=== PATIENT | male | born 1965 | race Caucasian/White ===

== ENCOUNTER 2020-04-04 11:16 | Outpatient (CLI) | payer BC ==
[~2020-04-04 11:16] MED LIST: CETI-90 PO; GLUC-178 PO; MULT-1074 PO
[2020-04-04] MEDS ORDERED: FLO0.4C PO (11:59)
[2020-04-04 12:22] LABS: BASOPHILS # (AUTO) 0.1 X10'3 (0-0.2); BASOPHILS % (AUTO) 0.7 % (0-1); EOSINOPHILS # (AUTO) 0.1 X10'3 (0-0.9); EOSINOPHILS % (AUTO) 0.7 % (0-6); LYMPHOCYTES # (AUTO) 0.8 X10'3 (1.1-4.8); LYMPHOCYTES % (AUTO) 7.8 % (21-51); MEAN CORPUSCULAR HEMOGLOBIN 31.2 PG (27.0-31.0); MEAN CORPUSCULAR HGB CONC 33.9 g/dL (33.0-36.5); MEAN PLATELET VOLUME 8.5 FL (7.4-10.4); MONOCYTES % (AUTO) 10.5 % (2-12); NEUTROPHILS # (AUTO) 7.8 X10'3 (1.8-7.7); NEUTROPHILS % (AUTO) 80.3 % (42-75); PRE OP HEMATOCRIT 45.4 % (42.0-52.0); PRE OP HEMOGLOBIN 15.4 g/dL (14.0-17.9); PRE OP PLATELET COUNT 343 X10'3 (140-440); RED BLOOD COUNT 4.94 X10'6 (4.70-6.10); RED CELL DISTRIBUTION WIDTH 12.5 % (11.5-14.5)
[2020-04-04 12:34] LABS: ALBUMIN 3.8 G/DL (3.4-5.0); ALBUMIN/GLOBULIN RATIO 0.9 (1.1-1.5); ALKALINE PHOSPHATASE 133 IU/L (46-116); BLOOD UREA NITROGEN 10 MG/DL (7-18); BUN/CREATININE RATIO 13.2 (5.4-32.0); CALCIUM 9.9 MG/DL (8.5-10.1); CHLORIDE 105 MMOL/L (99-107); CREATININE 0.76 MG/DL (0.60-1.10); PRE OP ALT 37 U/L (30-65); PRE OP ANION GAP 8 (8-16); PRE OP AST 24 U/L (10-37); PRE OP BILIRUB, TOTAL 0.4 MG/DL (0.0-1.0); PRE OP POTASSIUM 3.9 MMOL/L (3.4-5.1); PRE OP SODIUM 142 MMOL/L (135-145); TOTAL CARBON DIOXIDE 29.2 MMOL/L (24-32); eGFR > 90 ML/MIN
[2020-04-04 12:36] LABS: PRE OP GLUCOSE 82 MG/DL (70-104)
== END 2020-04-04 23:59 | disposition home or self-care (01) ==
LOC: PRE-OP 11:16 → EDSTATUS 04-11 07:30
PROVIDERS: ATTEND Urology
DX: Z01.812 Encounter for preprocedural laboratory examination (principal); C61 Malignant neoplasm of prostate; J90 Pleural effusion, not elsewhere classified; Z20.828 Contact with and (suspected) exposure to other viral communicable diseases
CPT/HCPCS: 36415; 71046; 80053; 85025; 86885; 86900; 86901; 86920; 87635; 93005

== ENCOUNTER 2020-04-21 08:25 | Day surgery (SDC) | payer BC ==
[~2020-04-21] VITALS: Ht 170.2 cm; Wt 68.1 kg
[~2020-04-21 08:25] MED LIST changes: -CETI-90 PO; +FLO0.4C PO; -GLUC-178 PO
[2020-04-21 08:55] VITALS: BP 118/76
[2020-04-21 08:56] VITALS: BP 126/80
[2020-04-21] MEDS ORDERED: albumin 25% 100mL bottle x 1 IV PRN (09:05)
[2020-04-21] MEDS ORDERED: MULT-1172 PEG (09:12)
[2020-04-21] MEDS ORDERED: FLO0.4C PO (09:12)
[2020-04-21 09:48] VITALS: BP 118/76
[2020-04-21 10:15] VITALS: BP 125/84
[2020-04-21 10:30] VITALS: BP 123/78
[2020-04-21 10:45] VITALS: BP 118/79
[2020-04-21 11:00] LABS: LDH,BODY FLUID 291 U/L
[2020-04-21 11:01] LABS: GLUCOSE,BODY FLUID 103 MG/DL; TOTAL PROTEIN,BODY FLUID 5.4 G/DL
[2020-04-21 12:19] LABS: BF RBC COUNT 1020 /CU MM; BF WBC COUNT 2775 /CU MM (0-1000); BFAPPEAR HAZY; BFCOLOR YELLOW; BFVOLUME 55 ML
[2020-04-21 12:21] LABS: LYMPHOCYTES,BODY FLUID 81 %; MONOCYTES,BODY FLUID 5 %; NEUTROPHILS,BODY FLUID 14 %
[2020-04-21 12:22] LABS: BF MESOTHELIAL CELLS FEW
== END 2020-04-21 11:03 | disposition home or self-care (01) ==
LOC: SSTAY O 08:25
PROVIDERS: ATTEND Radiology Diagnostic Radiology
DX: J90 Pleural effusion, not elsewhere classified (principal); Z85.46 Personal history of malignant neoplasm of prostate; Z98.890 Other specified postprocedural states; Z88.8 Allergy status to other drugs, medicaments and biological substances; Z72.89 Other problems related to lifestyle; Z79.899 Other long term (current) drug therapy
CPT/HCPCS: 32555; 71045; 82945; 83615; 84157; 87070; 87075; 89051

== ENCOUNTER 2020-05-16 08:34 | Day surgery (SDC) | payer BC ==
[~2020-05-16] VITALS: Ht 170.2 cm; Wt 68.6 kg
[~2020-05-16 08:34] MED LIST changes: -MULT-1074 PO; +MULT-1172 PO
[2020-05-16 08:45] VITALS: BP 128/94
[2020-05-16] MEDS ORDERED: albumin 25% 100mL bottle x 1 IV PRN (08:55)
[2020-05-16 10:30] VITALS: BP 110/76
[2020-05-16 10:45] VITALS: BP 122/82
== END 2020-05-16 10:45 | disposition home or self-care (01) ==
LOC: SSTAY O 08:34
PROVIDERS: ATTEND Radiology Vascular & Interventional Radiology
DX: J90 Pleural effusion, not elsewhere classified (principal); Z88.8 Allergy status to other drugs, medicaments and biological substances; F12.11 Cannabis abuse, in remission; Z85.46 Personal history of malignant neoplasm of prostate; Z98.890 Other specified postprocedural states; Z72.89 Other problems related to lifestyle; Z79.899 Other long term (current) drug therapy
CPT/HCPCS: 32555; 71045

== ENCOUNTER 2020-06-06 08:26 | Day surgery (SDC) | payer BC ==
[~2020-06-06] VITALS: Ht 170.2 cm; Wt 67.7 kg
[2020-06-06 09:00] VITALS: BP 115/81
--- NOTE | 2020-06-06 09:00 | NUR ---
Patient arrived to unit.
[2020-06-06 10:22] VITALS: BP 112/80
[2020-06-06 10:32] VITALS: BP 136/83
[2020-06-06 10:45] VITALS: BP 117/61
[2020-06-06 11:00] VITALS: BP 103/65
[2020-06-06 11:15] VITALS: BP 116/75
--- NOTE | 2020-06-06 11:40 | NUR ---
Spoke with CANDY Ha and CXR looked good for discharge. Patient discharged at this time. All belongings with pt.
== END 2020-06-06 11:40 | disposition home or self-care (01) ==
LOC: SSTAY O 08:26
PROVIDERS: ATTEND Radiology Vascular & Interventional Radiology
DX: J91.8 Pleural effusion in other conditions classified elsewhere (principal); J90 Pleural effusion, not elsewhere classified; Z20.822 Contact with and (suspected) exposure to COVID-19; Z85.46 Personal history of malignant neoplasm of prostate; Z87.891 Personal history of nicotine dependence; Z88.8 Allergy status to other drugs, medicaments and biological substances; Z79.899 Other long term (current) drug therapy; Z98.890 Other specified postprocedural states
CPT/HCPCS: 32555; 36415; 71045; 87635

== ENCOUNTER 2020-06-23 09:59 | Inpatient (IN) | payer BC ==
[~2020-06-23] VITALS: Ht 170.2 cm; Wt 70.5 kg
[2020-06-23 11:55] VITALS: BP 125/74
[2020-06-23 12:36] LABS: BASOPHILS # (AUTO) 0.1 X10'3 (0-0.2); BASOPHILS % (AUTO) 0.7 % (0-1); EOSINOPHILS # (AUTO) 0.1 X10'3 (0-0.9); EOSINOPHILS % (AUTO) 1.5 % (0-6); HEMATOCRIT 42.2 % (42.0-52.0); HEMOGLOBIN 14.2 g/dl (14.0-17.9); LYMPHOCYTES # (AUTO) 0.5 X10'3 (1.1-4.8); LYMPHOCYTES % (AUTO) 6.1 % (21-51); MEAN CORPUSCULAR HGB CONC 33.6 g/dL (33.0-36.5); MEAN CORPUSCULAR VOLUME 92.2 FL (78-98); MEAN PLATELET VOLUME 10.7 FL (7.4-10.4); MONOCYTES # (AUTO) 1.1 X10'3 (0-0.9); MONOCYTES % (AUTO) 12.8 % (2-12); NEUTROPHILS # (AUTO) 6.9 X10'3 (1.8-7.7); NEUTROPHILS % (AUTO) 78.9 % (42-75); PLATELET COUNT 267 X10'3 (140-440); RED BLOOD COUNT 4.57 X10'6 (4.70-6.10); RED CELL DISTRIBUTION WIDTH 13.5 % (11.5-14.5); WHITE BLOOD COUNT 8.7 X10'3 (4.5-11.0)
[2020-06-23 12:40] LABS: ALBUMIN 3.2 G/DL (3.4-5.0); ANION GAP 10 (8-16); BLOOD UREA NITROGEN 17 MG/DL (7-18); CALCIUM 9.9 MG/DL (8.5-10.1); CHLORIDE 104 MMOL/L (99-107); CREATININE 0.68 MG/DL (0.60-1.10); PARTIAL THROMBOPLASTIN TIME 27 SECONDS (22-32); POTASSIUM 3.9 MMOL/L (3.5-5.1); SODIUM 139 MMOL/L (135-145); TOTAL CARBON DIOXIDE 24.8 MMOL/L (24-32); eGFR > 90 ML/MIN
[2020-06-23 12:41] LABS: GLUCOSE 81 MG/DL (70-104)
[2020-06-23 13:12] LABS: LARGE PLATELETS FEW; PLATELET ESTIMATE NORMAL
--- NOTE | 2020-06-23 14:00 | NUR ---
I had called [facility]/IR department, spoke to Valentina about the order for chest tube, she said they are doing another patient and that they would probably do this patient around 3 pm.
[2020-06-23] MEDS: dextrose 5%-lactated ringers 1,000 ML IV SCH ×2 (14:16→23:39)
[2020-06-23 15:21] VITALS: BP 124/76
[2020-06-23 15:33] VITALS: BP 113/66
--- NOTE | 2020-06-23 15:57 | NUR ---
[facility]/IR nurse notified about small bubble on the chamber. I also asked her if we need to have order for chest xray, the nurse said we did not have to.
--- NOTE | 2020-06-23 17:00 | NUR ---
Small leak/bubbling on the chest tube chamber not noted anymore. Patient was instructed to call the nurse if he needs to go to the restroom and to call the nurse if suddenly he is short of breath. Patient verbalized understanding of instructions made.
--- NOTE | 2020-06-23 18:22 | NUR ---
I have received report from Sarika PIERRE and had the opportunity to ask questions and assume patient care.
--- NOTE | 2020-06-23 18:34 | NUR ---
Problems reprioritized. Patient report given, questions answered & plan of care reviewed with Barbara PIERRE.
[2020-06-23 20:00] VITALS: BP 99/58
[2020-06-23] MEDS: diatr meglu/diatrizoate 30ml oral sol.-(3 dose) bottle PO SCH (21:49)
[2020-06-23] MEDS ORDERED: morphine 4 MG/ML inj SYRINge IV PRN (22:05)
[2020-06-24] VITALS: BP 106/66
--- NOTE | 2020-06-24 06:08 | NUR ---
Problems reprioritized. Patient report given, questions answered & plan of care reviewed with Sarika PIERRE.
--- NOTE | 2020-06-24 06:08 | NUR ---
Patient in room [facility]. I have received report from Barbara PIERRE and had the opportunity to ask questions and assume patient care.
[2020-06-24] MEDS ORDERED: iohexol 300mg/ml 100ml inj. ONE (06:47)
[2020-06-24 07:00] VITALS: BP 99/62
[2020-06-24] MEDS: diatr meglu/diatrizoate 30ml oral sol.-(3 dose) bottle PO SCH ×2 (07:20→10:28)
--- NOTE | 2020-06-24 07:46 | NUR ---
Breakfast tray (caution tray) served to patient. Patient in good spirit at this time. He said that he has ongoing depression since 2006 and the last time he consulted a psychiatrist over the phone was March 2020. Patient denies any suicidal thoughts at this time, safety plan discussed with patient including referral to Offset Lithographic Press Operator. Addendum: 06/24/20 at 0749 by Essence Leblanc RN Sitter at bedside. Patient was instructed to tell the sitter if he need anything. Addendum: 06/24/20 at 1002 by Courtney Jarvis RN Above note was mine, charted on the wrong patient chart
[2020-06-24] MEDS: dextrose 5%-lactated ringers 1,000 ML IV SCH ×3 (09:50→22:55)
--- NOTE | 2020-06-24 10:40 | NUR ---
Patient went to CT scan via wheelchair. Chest tube dressing intact, not clamped. Giovana nurse Dora at the CT to take over while patient having the procedure
--- NOTE | 2020-06-24 10:50 | NUR ---
CANDY Fountain from came by, I told him patient in the CT scan department at the moment. I notified him about the chest tube output yesterday was a lot and that night nurse had to change the canister this am. I also let him know that there was a small leak yesterday after the chest tube was placed but had stopped.
[2020-06-24 11:00] VITALS: BP 97/61
--- NOTE | 2020-06-24 13:15 | NUR ---
Dr. Oquendo seen patient, discussed the CT scan result to patient with the sister present at bedside. Per Dr. Oquendo patient not going for surgery today but probably tomorrow. I made Dr. Oquendo aware that patient has been putting a lot of Chest tube drainage since yesterday so the night nurse has to change the canister.
--- NOTE | 2020-06-24 13:44 | NUR ---
I asked Claudy, [employer] to obtain records of pleural study done for this patient here in the hospital
--- NOTE | 2020-06-24 18:29 | NUR ---
Problems reprioritized. Patient report given, questions answered & plan of care reviewed with Barbara PIERRE.
--- NOTE | 2020-06-24 18:52 | NUR ---
I have received report from Ale PIERRE and had the opportunity to ask questions and assume patient care.
[2020-06-24 19:00] VITALS: BP 111/73
[2020-06-24 21:23] VITALS: BP 111/73
[2020-06-25] VITALS: BP 103/67
[2020-06-25 06:23] LABS: BASOPHILS # (AUTO) 0.1 X10'3 (0-0.2); BASOPHILS % (AUTO) 0.7 % (0-1); EOSINOPHILS # (AUTO) 0.4 X10'3 (0-0.9); EOSINOPHILS % (AUTO) 4.8 % (0-6); HEMATOCRIT 41.5 % (42.0-52.0); LYMPHOCYTES # (AUTO) 0.4 X10'3 (1.1-4.8); LYMPHOCYTES % (AUTO) 4.9 % (21-51); MEAN CORPUSCULAR HEMOGLOBIN 31.4 PG (27.0-31.0); MEAN CORPUSCULAR HGB CONC 33.8 g/dL (33.0-36.5); MEAN CORPUSCULAR VOLUME 92.7 FL (78-98); MEAN PLATELET VOLUME 11.2 FL (7.4-10.4); MONOCYTES # (AUTO) 1.1 X10'3 (0-0.9); MONOCYTES % (AUTO) 12.2 % (2-12); NEUTROPHILS % (AUTO) 77.4 % (42-75); PLATELET COUNT 249 X10'3 (140-440); RED BLOOD COUNT 4.48 X10'6 (4.70-6.10); RED CELL DISTRIBUTION WIDTH 13.6 % (11.5-14.5)
[2020-06-25 06:31] LABS: ALBUMIN 2.6 G/DL (3.4-5.0); ANION GAP 8 (8-16); BLOOD UREA NITROGEN 9 MG/DL (7-18); BUN/CREATININE RATIO 14.8 (5.4-32.0); CALCIUM 8.9 MG/DL (8.5-10.1); CHLORIDE 106 MMOL/L (99-107); CREATININE 0.61 MG/DL (0.60-1.10); POTASSIUM 4.1 MMOL/L (3.5-5.1); SODIUM 141 MMOL/L (135-145); TOTAL CARBON DIOXIDE 27.5 MMOL/L (24-32); eGFR > 90 ML/MIN
[2020-06-25 06:32] LABS: GLUCOSE 104 MG/DL (70-104)
[2020-06-25 06:35] LABS: PARTIAL THROMBOPLASTIN TIME 29 SECONDS (22-32)
--- NOTE | 2020-06-25 06:41 | NUR ---
Problems reprioritized. Patient report given, questions answered & plan of care reviewed with Anabell PIERRE.
--- NOTE | 2020-06-25 06:45 | NUR ---
Patient in room [facility]. I have received report from Barbara PIERRE and had the opportunity to ask questions and assume patient care.
[2020-06-25 08:00] VITALS: BP 99/58
[2020-06-25] MEDS: multivitamins, therapeutics tablet PO SCH (09:04)
[2020-06-25] MEDS: tamsulosin 0.4mg capsule PO SCH (09:04)
[2020-06-25] MEDS: dextrose 5%-lactated ringers 1,000 ML IV SCH ×2 (09:06→18:26)
[2020-06-25 10:30] VITALS: BP 96/56
--- NOTE | 2020-06-25 11:30 | NUR ---
No surgery today per Nato RN OR Charge. Phone call from Clarity of Dr Oquendo's office, pt may eat regular diet today, then NPO at midnight. Pt advised, as well as Александр MURILLO at pt's bedside.
[2020-06-25 12:00] VITALS: BP 96/56
--- NOTE | 2020-06-25 12:00 | NUR ---
Student entered "1030" as time for 1200 vitals.
--- NOTE | 2020-06-25 15:30 | NUR ---
Had received phone call message from Dr Stone Hung's office, stating she was leaving the office by 4pm. Returned call, unable to reach and left phone message to phone me back.
--- NOTE | 2020-06-25 18:15 | NUR ---
Problems reprioritized. Patient report given, questions answered & plan of care reviewed with Cynthia PIERRE.
--- NOTE | 2020-06-25 18:30 | NUR ---
Patient in room [facility] 354. I have received report from DANN PIERRE and had the opportunity to ask questions and assume patient care.
[2020-06-25 20:00] VITALS: BP 108/62
[2020-06-26] VITALS (17 sets, daily range): BP systolic 103–130; BP diastolic 59–82
[2020-06-26] MEDS: dextrose 5%-lactated ringers 1,000 ML IV SCH ×2 (04:45→13:46)
--- NOTE | 2020-06-26 06:16 | NUR ---
Problems reprioritized. Patient report given, questions answered & plan of care reviewed with ANNA PIERRE.
--- NOTE | 2020-06-26 07:30 | NUR ---
Called Dr Oquendo he is ok with patient to have breakfast and be NPO after breakfast .
[2020-06-26] MEDS: tamsulosin 0.4mg capsule PO SCH (07:47)
[2020-06-26] MEDS: multivitamins, therapeutics tablet PO SCH (07:47)
--- NOTE | 2020-06-26 08:58 | NUR ---
Spoke to Jose with [facility] regarding patient has no orders for chest tube management. This chest tube was placed by IR. Per Jose she will contact Александр the PA and get orders or Александр will come see patient.
[2020-06-26] MEDS ORDERED: BUPIVAcaine/PF 2.5 mg/ml (0.25%) 30ml vial ONE (15:26)
[2020-06-26] MEDS ORDERED: sterile Talc 3 GM powder vial (for IntraPleural Use ONLY) ONE (15:48)
--- NOTE | 2020-06-26 17:33 | NUR ---
Problems reprioritized. Patient report given, questions answered & plan of care reviewed with Dipika PIERRE in Recovery.
--- NOTE | 2020-06-26 17:47 | NUR ---
Blood type and screen complete patient taken via gurney to surgery at bedside. PCT Kedar packing patients belongings and leaving in room until we find out what room patient will go to after surgery. Patients took patients cell phone home.
[2020-06-26] MEDS ORDERED: scopolamine 1.5mg patch.TD72 TD ONE (18:28)
--- NOTE | 2020-06-26 18:30 | NUR ---
Patient in room [facility] 354. I have received report from Tuyet PIERRE and had the opportunity to ask questions and assume patient care.
[2020-06-26] MEDS ORDERED: fentaNYL /PF 50mcg/ml 5ml ampule ONE (18:32)
[2020-06-26] MEDS ORDERED: midazolam 1 mg/ML 2ml injection ONE (18:32)
--- NOTE | 2020-06-26 18:35 | NUR ---
Problems reprioritized. Patient report given, questions answered & plan of care reviewed with Heidi PIERRE (danisha).
[2020-06-26] MEDS ORDERED: ondansetron/PF 4mg/2ml inj IV PRN ×2 (20:20→20:55)
[2020-06-26] MEDS ORDERED: morphine 2 MG/ML inj. syringe IV PRN (20:20)
[2020-06-26] MEDS ORDERED: ringers solution, lacted 1,000 ML IV SCH (20:20)
[2020-06-26] MEDS ORDERED: meperidine/PF 25mg/ml syringe IV PRN ×2 (20:20)
[2020-06-26] MEDS ORDERED: morphine 4 MG/ML inj SYRINge IV PRN ×3 (20:20→20:55)
[2020-06-26] MEDS ORDERED: proCHLORperazine 10 MG/2 ml inj IV PRN (20:20)
[2020-06-26] MEDS ORDERED: metoclopramide 5 mg/ml inj IV PRN (20:55)
[2020-06-26] MEDS ORDERED: potassium Cl 20mEq in D5-NS 1,000 ML IV SCH (20:55)
[2020-06-26] MEDS ORDERED: albuterol 2.5 MG/3 ML nebule NEB PRN (20:55)
[2020-06-26] MEDS ORDERED: naloxone 0.4 mg/ml inj IV PRN ×2 (20:55→21:30)
[2020-06-26] MEDS ORDERED: propofol inj 20 ML IV ONE (20:55)
[2020-06-26] MEDS ORDERED: ondansetron/PF 4mg/2ml inj ONE (20:55)
[2020-06-26] MEDS ORDERED: CADD PCA waste documentation MC PRN ×2 (20:55→21:30)
[2020-06-26] MEDS ORDERED: acetaminophen 1,000mg/100ml IV 100 ML IV ONE (20:55)
[2020-06-26] MEDS ORDERED: rocuronium 10mg/ml inj IV ONE (20:55)
[2020-06-26] MEDS ORDERED: LIDOcaine 2% (20mg/ml) 5ml vial ONE (20:55)
[2020-06-26] MEDS ORDERED: meperidine/PF 25mg/ml syringe ONE (20:55)
[2020-06-26] MEDS ORDERED: dexamethasone sod phosphate 4mg/ml inj. ONE (20:55)
--- NOTE | 2020-06-26 21:00 | NUR ---
Received from OR via BED , accompanied by Anesthesiologist DR KENNEDY and report given by Anesthesiolgist. PATIENT WAKING UP,C/O PAIN SEE EMAR , V/S WNL, CSM INTACT, F/C DRAINING CLEAR YELLOW URINE, SCD ON, 20G PIV TO RUE AND 20G LUE AND ART LINE TO LUE, LEFT SIDED CHEST TUBE 2 DRAINS Y PORTED TO SINGLE LINE TO CHEST TUBE AT 20CM SUCTION WITH MINIMAL LEAK DRESSING CDI, 90CCIN DRAIN RED BLOOD, DR KUMARI AWARE.
[2020-06-26] MEDS: meperidine/PF 25mg/ml syringe IV PRN ×2 (21:07→21:20)
[2020-06-26 21:09] LABS: ABG BASE EXCESS -0.6 mmol/L (-2.0-2.0); ABG HCO3 27.2 mmol/L (22.0-26.0); ABG PO2 (T) 93.1 mmHg (75.0-100.0); FCOHb 0.1 % (0.0-3.9); FLOW 10 L/min; FMetHb 0.5 % (0.0-1.5); FO2Hb 96.4 % (94-97)
[2020-06-26] MEDS ORDERED: ketorolac trometh. 30mg/ml inj. IV ONE (21:20)
--- NOTE | 2020-06-26 21:50 | NUR ---
PATIENT A&OX4, STATES PAIN BETTER CONTROLLED NOW SEE EMAR. CHEMICAL EQUIPMENT SALES ENGINEER ORDERED PRN IF NEEDED BUT SO FAR PATIENT PAIN SEEMS TO BE TOLERATING GOOD PAIN CONTROL AT THIS TIME AND CHEMICAL EQUIPMENT SALES ENGINEER WILL ONLY BE STARTED IF NEEDED PER DR KUMARI. , V/S WNL, CSM INTACT, F/C DRAINING CLEAR YELLOW URINE, SCD ON, 20G PIV TO RUE AND 20G LUE AND ART LINE TO LUE, LEFT SIDED CHEST TUBE 2 DRAINS Y PORTED TO SINGLE LINE TO CHEST TUBE AT 20CM SUCTION WITH MINIMAL LEAK DRESSING CDI, 120CC IN DRAIN OF RED BLOOD. CHEST XRAY TAKEN AND ABG DRAWN AND DR KUMARI HAS REVIEWED/ PATIENT TAKEN TO 316 WITH ALL BELONGINGS AND HOOKED UP TO MONITORS IN ROOM AND REPORT GIVEN TO RN WHO HAS TAKEN OVER PATIENT CARE.
--- NOTE | 2020-06-26 21:55 | NUR ---
RECEIVED PATIENT FROM RECOVERY. RN BROUGHT PATIENT TO ROOM 316. PATIENT STABLE VSS. PATIENT HAS LR RUNNING. NO OTHER FLUIDS TO GIVE PER REPORT. OUTPUT ON CHEST TUBE WAS AT 150 UPON ARRIVAL TO UNIT.
[2020-06-26 22:26] LABS: ABG BASE EXCESS -1.9 mmol/L (-2.0-2.0); ABG HCO3 23.4 mmol/L (22.0-26.0); ABG OXYGEN SATURATION 96.7 % (94-97); ABG PCO2 (T) 40.7 mmHg (35.0-48.0); ABG PO2 (T) 86.4 mmHg (75.0-100.0); FCOHb 0.3 % (0.0-3.9); FLOW 2 L/min; FMetHb 0.5 % (0.0-1.5); FO2Hb 95.9 % (94-97); PATIENT TEMPERATURE 36.4; TOTAL HEMOGLOBIN 14.6 G/dl (14.0-18.0)
[2020-06-27] VITALS (12 sets, daily range): BP systolic 91–124; BP diastolic 56–82
[2020-06-27] MEDS ORDERED: ceFAZolin inj. 1,000 MG in dextrose 5%-water 50ml 50 ML IV SCH ×2
--- NOTE | 2020-06-27 00:38 | NUR ---
PAITIENT C/O INCREASING PAIN 02/08. RN WILL APPLY SHEET MANAGER PUMP.
[2020-06-27] MEDS: HYDROmorphone/NS 1 mg/ml CADD 50 ML IV SCH ×4 (01:00→05:00)
[2020-06-27] MEDS: ceFAZolin/D5W- 1GM premix 50 ML IV SCH ×2 (01:21→08:17)
--- NOTE | 2020-06-27 05:39 | NUR ---
PATIENT BP WAS 87/50, PATIENT WAS COMPLAINING OF DIZZINESS, CAAD PUMP WAS STOPPED. RN ASSESSED PATIENT, AND WILL CONTINUE TO REASSESS. PATIENT ATE YOGURT AND WAS OFFERED WATER
--- NOTE | 2020-06-27 06:00 | NUR ---
PATIENT BLOOD PRESSURE INCREASED TO 95/60. PATIENT STATED HE WAS NO LONGER DIZZY AND HE FELT BETTER
--- NOTE | 2020-06-27 06:38 | NUR ---
Problems reprioritized. Patient report given, questions answered & plan of care reviewed with Ozzie cullen.
[2020-06-27] MEDS: gabapentin 300mg capsule PO SCH ×2 (08:22→20:24)
[2020-06-27] MEDS: multivitamins, therapeutics tablet PO SCH (08:22)
[2020-06-27] MEDS: tamsulosin 0.4mg capsule PO SCH (08:22)
[2020-06-27] MEDS: morphine 2 MG/ML inj. syringe IV PRN (11:08)
--- NOTE | 2020-06-27 16:14 | NUR ---
Initial: pt admit for chest tube placement d/t pleural effusion. Pt s/p bronchoscopy and thorascopic pleural biopsy 06/26 per provider's notes. Pt receiving regular diet, PO intake is fluctuating with the average of 75-100% of meals, meeting nutrient needs. Pt last BM 06/24 per EMR. Visited pt at bed side, reports last BM is today, also reports disliking milk to drink.chief internal auditor recommended almond milk, pt willing to try, d/w dietary to send with meals. Spoke to pt visitor, reports pt weight loss, there is no significant weight loss per weight hx. Will continue to monitor Recommend: 1. Continue regular diet 2. Weight per rx Addendum: 06/27/20 at 1614 by Ronald MORAN INTERN RD Amended: Links added. Addendum: 06/27/20 at [address] MD agree with advisory intern note
--- NOTE | 2020-06-27 16:23 | NUR ---
this morning, upon receiving report Violetta PIERRE stated the IV hydromorphone was not running due to hypotension episodes, Dr. Coronado made aware during rounds and stated not a problem, d/c dredge operator supervisor and use prn meds to manage patients pain. will waste medication that was left in the pump since this morning.
[2020-06-27] MEDS: HYDROcodone/acetaminophen 10/325mg tab PO PRN (17:29)
--- NOTE | 2020-06-27 18:20 | NUR ---
Patient in room MED 316. I have received report from Lorenzo PIERRE and had the opportunity to ask questions and assume patient care.
--- NOTE | 2020-06-27 18:30 | NUR ---
patient c/o of bladder tenderness and fullness. RN BladderScan and there was >779 of urine. RN will straight cath.
--- NOTE | 2020-06-27 18:59 | NUR ---
patient complaining of difficulty urinating at shift change, bladder scan done at bedside, greater than 750, Violetta RN at bedside, aware, will do a straight cath on patient.
--- NOTE | 2020-06-27 19:20 | NUR ---
Patient was straight cathed and had 750 cc removed. patient tolerated the procedure will. no other s.s of complications at this time
[2020-06-27] MEDS: ketorolac tromethamine 15mg/ml inj. IV SCH ×2 (20:00→20:30)
[2020-06-27] MEDS: dextrose 5%-lactated ringers 1,000 ML IV SCH (20:57)
[2020-06-28 02:00] VITALS: BP 100/63
[2020-06-28 06:00] VITALS: BP 107/64
--- NOTE | 2020-06-28 06:20 | NUR ---
Problems reprioritized. Patient report given, questions answered & plan of care reviewed with Lorenzo PIERRE.
[2020-06-28] MEDS: multivitamins, therapeutics tablet PO SCH (07:22)
[2020-06-28] MEDS: gabapentin 300mg capsule PO SCH (07:22)
[2020-06-28] MEDS: morphine 2 MG/ML inj. syringe IV PRN (07:23)
[2020-06-28] MEDS: tamsulosin 0.4mg capsule PO SCH (07:23)
[2020-06-28 11:00] VITALS: BP 116/75
[2020-06-28] MEDS: traMADol 50MG tablet PO PRN (13:14)
[2020-06-28 15:00] VITALS: BP 107/68
[2020-06-28 18:00] VITALS: BP 116/75
--- NOTE | 2020-06-28 18:16 | NUR ---
Violetta Alfredo given SBAR report, EMAR reviewed, Questions answered, plan of care reviewed.
--- NOTE | 2020-06-28 18:36 | NUR ---
Patient in room MED 316. I have received report from Lorenzo PIERRE and had the opportunity to ask questions and assume patient care.
[2020-06-28] MEDS: HYDROcodone/acetaminophen 10/325mg tab PO PRN (18:45)
[2020-06-28 22:00] VITALS: BP 98/58
[2020-06-29 02:00] VITALS: BP 96/53
[2020-06-29 06:00] VITALS: BP 108/67
--- NOTE | 2020-06-29 06:22 | NUR ---
Problems reprioritized. Patient report given, questions answered & plan of care reviewed with Brigette PIERRE.
[2020-06-29] MEDS: multivitamins, therapeutics tablet PO SCH (07:19)
[2020-06-29] MEDS: tamsulosin 0.4mg capsule PO SCH (07:19)
[2020-06-29] MEDS: traMADol 50MG tablet PO PRN ×3 (07:19→19:54)
[2020-06-29 11:00] VITALS: BP 100/58
[2020-06-29 15:00] VITALS: BP 103/64
--- NOTE | 2020-06-29 18:30 | NUR ---
Patient in room MED 316. I have received report from MADELEINE and had the opportunity to ask questions and assume patient care. ASSUMED CARE OF PT WITH RN STUDENT CONSTANTINO Mathews
[2020-06-29 19:00] VITALS: BP 95/61
[2020-06-29 22:00] VITALS: BP 94/60
[2020-06-30] MEDS: HYDROcodone/acetaminophen 10/325mg tab PO PRN ×2 (00:17→13:03)
[2020-06-30 03:00] VITALS: BP 91/53
--- NOTE | 2020-06-30 03:01 | NUR ---
Student documentation: I have reviewed and agree with all interventions, assessments performed and documented by CONSTANTINO Student Medication Administration: For this medication-pass time frame, all medication were reviewed, dispensed, administered and documented per hospital policy by CONSTANTINO. .
[2020-06-30] MEDS: traMADol 50MG tablet PO PRN (06:11)
--- NOTE | 2020-06-30 06:30 | NUR ---
Problems reprioritized. Patient report given, questions answered & plan of care reviewed with AZAEL.
[2020-06-30 06:40] VITALS: BP 99/59
[2020-06-30] MEDS: tamsulosin 0.4mg capsule PO SCH (08:37)
[2020-06-30] MEDS: multivitamins, therapeutics tablet PO SCH (08:37)
[2020-06-30 12:04] VITALS: BP 100/58
[2020-06-30 16:09] VITALS: BP 99/58
[2020-06-30 18:00] VITALS: BP 106/59
--- NOTE | 2020-06-30 18:00 | NUR ---
Patient in room [facility] 316. I have received report from Jeanine PIERRE. and had the opportunity to ask questions and assume patient care. Pt sitting in chair. NAD noted, RR even and unlabored. Pt voiced no concerns. Safety precautions in place. Will continue to monitor.
[2020-06-30] MEDS: morphine 2 MG/ML inj. syringe IV PRN (21:22)
[2020-06-30 22:00] VITALS: BP 111/74
[2020-07-01 02:00] VITALS: BP 101/60
[2020-07-01] MEDS: HYDROcodone/acetaminophen 10/325mg tab PO PRN ×4 (02:59→18:58)
[2020-07-01 06:00] VITALS: BP 97/62
--- NOTE | 2020-07-01 06:20 | NUR ---
Patient in room MED 316. I have received report from subhash may and had the opportunity to ask questions and assume patient care.
--- NOTE | 2020-07-01 06:26 | NUR ---
Problems reprioritized. Patient report given, questions answered & plan of care reviewed with Damaris PIERRE.
[2020-07-01] MEDS: tamsulosin 0.4mg capsule PO SCH (08:30)
[2020-07-01] MEDS: multivitamins, therapeutics tablet PO SCH (08:30)
[2020-07-01 11:00] VITALS: BP 94/56
[2020-07-01 14:00] VITALS: BP 103/61
[2020-07-01 18:00] VITALS: BP 105/64
--- NOTE | 2020-07-01 18:18 | NUR ---
Problems reprioritized. Patient report given, questions answered & plan of care reviewed with .IGNACIO GUTIERREZ
[2020-07-01 22:00] VITALS: BP 98/55
[2020-07-02] MEDS: HYDROcodone/acetaminophen 10/325mg tab PO PRN ×4 (01:18→19:40)
[2020-07-02 06:00] VITALS: BP 97/54
[2020-07-02] MEDS: tamsulosin 0.4mg capsule PO SCH (07:42)
[2020-07-02] MEDS: multivitamins, therapeutics tablet PO SCH (07:42)
--- NOTE | 2020-07-02 09:15 | NUR ---
Patient in room MED 316. I have received report from Cuauhtemoc PIERRE and had the opportunity to ask questions and assume patient care.
[2020-07-02 10:04] LABS: BASOPHILS % (AUTO) 0.5 % (0-1); EOSINOPHILS # (AUTO) 0.5 X10'3 (0-0.9); EOSINOPHILS % (AUTO) 5.3 % (0-6); LYMPHOCYTES # (AUTO) 0.4 X10'3 (1.1-4.8); LYMPHOCYTES % (AUTO) 4.1 % (21-51); MEAN CORPUSCULAR HEMOGLOBIN 31.1 PG (27.0-31.0); MEAN CORPUSCULAR HGB CONC 33.9 g/dL (33.0-36.5); MEAN CORPUSCULAR VOLUME 91.9 FL (78-98); MEAN PLATELET VOLUME 7.9 FL (7.4-10.4); MONOCYTES % (AUTO) 10.7 % (2-12); NEUTROPHILS # (AUTO) 7.7 X10'3 (1.8-7.7); NEUTROPHILS % (AUTO) 79.4 % (42-75); PRE OP HEMATOCRIT 39.1 % (42.0-52.0); PRE OP HEMOGLOBIN 13.3 g/dL (14.0-17.9); PRE OP PLATELET COUNT 355 X10'3 (140-440); RED BLOOD COUNT 4.26 X10'6 (4.70-6.10); RED CELL DISTRIBUTION WIDTH 12.9 % (11.5-14.5)
[2020-07-02 10:19] LABS: PRE OP PARTIAL THROMB. TIME 28 SECONDS (22-32)
[2020-07-02 10:22] LABS: ALBUMIN 2.3 G/DL (3.4-5.0); ALBUMIN/GLOBULIN RATIO 0.6 (1.1-1.5); ALKALINE PHOSPHATASE 97 IU/L (46-116); BLOOD UREA NITROGEN 15 MG/DL (7-18); CHLORIDE 104 MMOL/L (99-107); CREATININE 0.75 MG/DL (0.60-1.10); PRE OP ALT 26 U/L (30-65); PRE OP ANION GAP 4 (8-16); PRE OP AST 24 U/L (10-37); PRE OP BILIRUB, TOTAL 0.2 MG/DL (0.0-1.0); PRE OP SODIUM 138 MMOL/L (135-145); TOTAL PROTEIN 6.2 G/DL (6.4-8.2); eGFR > 90 ML/MIN
[2020-07-02 10:25] LABS: PRE OP GLUCOSE 116 MG/DL (70-104)
[2020-07-02 11:24] VITALS: BP 106/61
[2020-07-02 15:00] VITALS: BP 94/50
[2020-07-02] MEDS ORDERED: famotidine/PF 10 mg/ml inj IV ONE (17:50)
[2020-07-02] MEDS: ringers solution, lacted 1,000 ML IV SCH (17:50)
--- NOTE | 2020-07-02 17:50 | NUR ---
Orders for pepcid and LR put in per anesthesia orders.
[2020-07-02 18:00] VITALS: BP 94/50
--- NOTE | 2020-07-02 18:04 | NUR ---
Problems reprioritized. Patient report given, questions answered & plan of care reviewed with Cuauhtemoc PIERRE.
[2020-07-02] MEDS: traMADol 50MG tablet PO PRN (20:55)
[2020-07-02 22:00] VITALS: BP 91/55
[2020-07-03] VITALS (24 sets, daily range): BP systolic 92–157; BP diastolic 55–98
[2020-07-03] MEDS: HYDROcodone/acetaminophen 10/325mg tab PO PRN ×2 (02:22→02:24)
--- NOTE | 2020-07-03 06:15 | NUR ---
Patient in room MED 316. I have received report from IGNACIO Mandujano and had the opportunity to ask questions and assume patient care.
[2020-07-03] MEDS ORDERED: sterile Talc 3 GM powder vial (for IntraPleural Use ONLY) ONE ×2 (06:51→09:31)
[2020-07-03] MEDS ORDERED: LIDOcaine 1% (10mg/ml) 2ml vial ONE (06:52)
--- NOTE | 2020-07-03 07:04 | NUR ---
Pleuradesis procedure Patient picked up for pleuradesis at 0700 - taken in pts bed. Pt has been NPO since midnight. PRN norco given at 0224 with small sip of water. Pt is in sinus rhythm and in no S/S or C/O distress. Called recovery to give report; no answer. Called OR x [phone] - per Nato "don't worry about report since no answer in recover."
[2020-07-03] MEDS ORDERED: propofol inj 20 ML IV ONE (07:33)
[2020-07-03] MEDS ORDERED: rocuronium 10mg/ml inj IV ONE ×2 (07:33→07:54)
[2020-07-03] MEDS ORDERED: cefazolin/dext.iso 2,000MG/50 ML BAG IV ONE (07:54)
[2020-07-03] MEDS ORDERED: dexamethasone sod phosphate 10mg/ml inj ONE (07:54)
[2020-07-03] MEDS ORDERED: sevoflurane 250ml liquid IH ONE (07:54)
[2020-07-03] MEDS ORDERED: fentaNYL /PF 50mcg/ml 5ml ampule ONE (07:58)
[2020-07-03] MEDS ORDERED: MIDAZolam 1mg/ml 10ml vial ONE (07:58)
[2020-07-03] MEDS: multivitamins, therapeutics tablet PO SCH (08:00)
[2020-07-03] MEDS ORDERED: ondansetron/PF 4mg/2ml inj IV PRN (10:05)
--- NOTE | 2020-07-03 10:09 | NUR ---
Received from OR via ICU BED , accompanied by Anesthesiologist ERIC and report given by Anesthesiolgist. PATIENT WITH ET TUBE AT 23 AT THE LIPS. 2 CHEST TUBES TO LEFT TRUNK- DRESSING CDI LEADING TO ATRIUM WITH 20 CC BLOODY DRAINAGE. PATIENT WITH LOW CONTINOUS SUCTION. 16 G PIV IN LEFT UE AND 20G PVI IN RIGHT UE WITH ART LINE IN PLACE IN RUE WELL. LR RUNNING VIA RUE PIV. SCDS DONNED AND VSS AT THIS TIME. PUENTE CATHETER IN PLACE. CY URINE PRESENT Addendum: 07/03/20 at 1040 by Santos Davis RN, RN Amended: Links added.
--- NOTE | 2020-07-03 10:27 | NUR ---
Problems reprioritized. Patient report given, questions answered & plan of care reviewed with IGNACIO Huitron in ICU - ICU will call ACCE once patient has arrived on unit.
[2020-07-03] MEDS: FENTANYL-0.9 % NACL/PF 100 ML IV PRN ×2 (10:30→22:15)
--- NOTE | 2020-07-03 10:37 | NUR ---
Reassessment: Pt with chest tube in place, documented with 270 mL output /3 per I&O. Pt pending thorascopic pleurodesis today per MD notes. Pt continues with 75-100% PO intake of meals on regular diet meeting estimated nutrient needs. LBM 3/. No nutrition intervention warranted at this time. Will continue to follow. Recommend: 1. Continue regular diet 2. Bowel care per rx 3. Scaled weight per rx Addendum: 07/03/20 at [address] Amended: Links added.
[2020-07-03] MEDS ORDERED: propofol 1000mg/100ml bottle 100 ML IV ONE (10:46)
[2020-07-03] MEDS: propofol 1000mg/100ml bottle 100 ML IV SCH ×2 (10:48→15:14)
--- NOTE | 2020-07-03 11:09 | NUR ---
Report called to receiving nurse. Transferred via ICU BED WITH NO Belongings . Special Issues communicated to receiving nurse ROSIE PIERRE.VSS. ALL LINES FROM RR SWITCHED OVER TO ICU. CHEST TUBE CONNECTED, RN PRESENT TO ACCEPT CARE, RT PRESENT TO MANAGE VENTILATOR AND SETTINGS. CLEAR YELLOW URINE PRESENT IN PUENTE CATHETER. PROPOFOL AND FENTANYL DRIPS RUNNING WELL LR AT 50. VSS AT THIS TIME AND TRANSFER OF CARE COMPLETED. APRROXIMATE 100-150 CC BLOODY DRAINAGE PRESENT TO CHEST TUBE. Addendum: 07/03/20 at 1122 by Santos Davis RN RN Amended: Links added.
--- NOTE | 2020-07-03 11:15 | NUR ---
Patient transferred from Recovery and placed on monitor. Vital signs stable. All belongings sent over with .
[2020-07-03 11:31] LABS: ABG BASE EXCESS 3.4 mmol/L (-2.0-2.0); ABG HCO3 26.5 mmol/L (22.0-26.0); ABG OXYGEN SATURATION 98.9 % (94-97); ABG PCO2 (T) 35.4 mmHg (35.0-48.0); ABG PO2 (T) 154.8 mmHg (75.0-100.0); FCOHb 0.3 % (0.0-3.9); FMetHb 0.4 % (0.0-1.5); FO2Hb 98.2 % (94-97); PEEP 8 cm H2O; RESPIRATORY RATE 12 b/min; TIDAL VOLUME 600 mL; TOTAL HEMOGLOBIN 13.9 G/dl (14.0-18.0)
[2020-07-03 12:01] LABS: TRIGLYCERIDES 73 MG/DL (20-135)
[2020-07-03] MEDS: tamsulosin 0.4mg capsule PO SCH (12:28)
[2020-07-03] MEDS: ringers solution, lacted 1,000 ML IV SCH (13:50)
[2020-07-03] MEDS: ceFAZolin/D5W- 1GM premix 50 ML IV SCH (15:15)
--- NOTE | 2020-07-03 16:03 | NUR ---
I have reviewed and agree with all medications administered and interventions performed by [facility] Student, Dion Barrera.
--- NOTE | 2020-07-03 18:15 | NUR ---
Patient in room ICU 2041. I have received report from Tomy PIERRE and had the opportunity to ask questions and assume patient care. Patient is on the ventilator and resting comfortably. Fentanyl and propofol gtt's infusing. VS are all WNL.
--- NOTE | 2020-07-03 18:20 | NUR ---
Problems reprioritized. Patient report given, questions answered & plan of care reviewed with Jana PIERRE.
[2020-07-04] VITALS (22 sets, daily range): BP systolic 83–140; BP diastolic 38–77
[2020-07-04] MEDS: ceFAZolin/D5W- 1GM premix 50 ML IV SCH (00:55)
[2020-07-04 03:16] LABS: BASOPHILS # (AUTO) 0.1 X10'3 (0-0.2); BASOPHILS % (AUTO) 0.5 % (0-1); EOSINOPHILS % (AUTO) 0.1 % (0-6); HEMATOCRIT 35.8 % (42.0-52.0); HEMOGLOBIN 12.1 g/dl (14.0-17.9); LYMPHOCYTES # (AUTO) 0.6 X10'3 (1.1-4.8); LYMPHOCYTES % (AUTO) 4.2 % (21-51); MEAN CORPUSCULAR HEMOGLOBIN 30.7 PG (27.0-31.0); MEAN CORPUSCULAR HGB CONC 33.8 g/dL (33.0-36.5); MEAN CORPUSCULAR VOLUME 90.8 FL (78-98); MEAN PLATELET VOLUME 9.8 FL (7.4-10.4); MONOCYTES # (AUTO) 1.2 X10'3 (0-0.9); MONOCYTES % (AUTO) 9.1 % (2-12); NEUTROPHILS # (AUTO) 11.3 X10'3 (1.8-7.7); NEUTROPHILS % (AUTO) 86.1 % (42-75); PLATELET COUNT 342 X10'3 (140-440); RED BLOOD COUNT 3.94 X10'6 (4.70-6.10); RED CELL DISTRIBUTION WIDTH 12.7 % (11.5-14.5); WHITE BLOOD COUNT 13.1 X10'3 (4.5-11.0)
[2020-07-04 03:25] LABS: ALBUMIN 2.1 G/DL (3.4-5.0); ANION GAP 11 (8-16); BLOOD UREA NITROGEN 15 MG/DL (7-18); BUN/CREATININE RATIO 21.4 (5.4-32.0); CHLORIDE 104 MMOL/L (99-107); GLUCOSE 105 MG/DL (70-104); MAGNESIUM 1.8 MG/DL (1.5-2.4); SODIUM 141 MMOL/L (135-145); TOTAL CARBON DIOXIDE 26.3 MMOL/L (24-32); TRIGLYCERIDES 76 MG/DL (20-135); eGFR > 90 ML/MIN
[2020-07-04] MEDS: FENTANYL-0.9 % NACL/PF 100 ML IV PRN (03:36)
[2020-07-04 04:00] LABS: ABG BASE EXCESS 1.7 mmol/L (-2.0-2.0); ABG HCO3 25.2 mmol/L (22.0-26.0); ABG OXYGEN SATURATION 97.9 % (94-97); ABG PCO2 (T) 36.5 mmHg (35.0-48.0); ABG PO2 (T) 112.3 mmHg (75.0-100.0); FCOHb 0.3 % (0.0-3.9); FMetHb 0.5 % (0.0-1.5); FO2Hb 97.1 % (94-97); PATIENT TEMPERATURE 37.1; PEEP 8 cm H2O; RESPIRATORY RATE 12 b/min; TIDAL VOLUME 600 mL; TOTAL HEMOGLOBIN 13.4 G/dl (14.0-18.0)
--- NOTE | 2020-07-04 06:16 | NUR ---
Problems reprioritized. Patient report given, questions answered & plan of care reviewed with Tomy PIERRE.
[2020-07-04] MEDS: multivitamins, therapeutics tablet PO SCH (06:27)
[2020-07-04] MEDS: tamsulosin 0.4mg capsule PO SCH (06:27)
[2020-07-04] MEDS: ringers solution, lacted 1,000 ML IV SCH ×2 (09:50→12:51)
--- NOTE | 2020-07-04 10:50 | NUR ---
Dr. Oquendo at bedside aware that patient continues to go apneic on spontaneous breathing trial; otherwise weaning parameters stable and patient awake and oriented. Restart IV fluids to 50ml/hour as U/O 20-30ml/h. Upon extubation, orders to place chest tube to suction, advance diet after swallow eval, and IV/PO pain medication as tolerated. Patient febrile; will administer PRN tylenol per order.
[2020-07-04] MEDS ORDERED: racepinephrine 11.25mg/0.5ml nebule NEB PRN (11:35)
[2020-07-04] MEDS ORDERED: ipratropium/albuterol 3ml nebule NEB PRN (11:35)
[2020-07-04] MEDS ORDERED: acetaminophen 325mg tablet PO PRN (11:50)
[2020-07-04] MEDS: HYDROmorphone 1 mg/ml syringe IV PRN ×2 (12:16→20:05)
[2020-07-04] MEDS ORDERED: ketorolac trometh. 30mg/ml inj. IM SCH (14:00)
[2020-07-04] MEDS: HYDROcodone/acetaminophen 10/325mg tab PO PRN ×2 (14:03→18:00)
[2020-07-04] MEDS: ipratropium/albuterol 3ml nebule NEB SCH ×2 (14:45→21:00)
[2020-07-04] MEDS: ketorolac trometh. 30mg/ml inj. IV PRN (16:13)
--- NOTE | 2020-07-04 17:59 | NUR ---
I have reviewed and agree with all medications administered and interventions performed by SQUARING MACHINE OPERATOR Student Dion Barrera.
--- NOTE | 2020-07-04 18:06 | NUR ---
Problems reprioritized. Patient report given, questions answered & plan of care reviewed with Jana PIERRE.
--- NOTE | 2020-07-04 21:22 | NUR ---
pt denies SOb and declines SVN's at this time. Placed patient on CPAP of 8 fio2 25% for sleep apnea
[2020-07-05] VITALS (18 sets, daily range): BP systolic 88–105; BP diastolic 43–66
[2020-07-05] MEDS: ipratropium/albuterol 3ml nebule NEB SCH ×4 (03:00→20:52)
[2020-07-05] MEDS: HYDROcodone/acetaminophen 10/325mg tab PO PRN ×4 (03:36→20:10)
[2020-07-05 06:20] LABS: BASOPHILS # (AUTO) 0.1 X10'3 (0-0.2); BASOPHILS % (AUTO) 0.4 % (0-1); EOSINOPHILS # (AUTO) 0.1 X10'3 (0-0.9); EOSINOPHILS % (AUTO) 0.6 % (0-6); HEMATOCRIT 36.2 % (42.0-52.0); HEMOGLOBIN 12.2 g/dl (14.0-17.9); LYMPHOCYTES # (AUTO) 0.6 X10'3 (1.1-4.8); LYMPHOCYTES % (AUTO) 4.4 % (21-51); MEAN CORPUSCULAR HEMOGLOBIN 30.7 PG (27.0-31.0); MEAN CORPUSCULAR HGB CONC 33.6 g/dL (33.0-36.5); MEAN CORPUSCULAR VOLUME 91.6 FL (78-98); MONOCYTES # (AUTO) 1.9 X10'3 (0-0.9); MONOCYTES % (AUTO) 15.6 % (2-12); NEUTROPHILS # (AUTO) 9.8 X10'3 (1.8-7.7); PLATELET COUNT 319 X10'3 (140-440); RED BLOOD COUNT 3.96 X10'6 (4.70-6.10); RED CELL DISTRIBUTION WIDTH 12.9 % (11.5-14.5); WHITE BLOOD COUNT 12.4 X10'3 (4.5-11.0)
[2020-07-05 06:26] LABS: ALBUMIN 2.1 G/DL (3.4-5.0); ANION GAP 4 (8-16); BLOOD UREA NITROGEN 16 MG/DL (7-18); BUN/CREATININE RATIO 21.6 (5.4-32.0); CHLORIDE 101 MMOL/L (99-107); CREATININE 0.74 MG/DL (0.60-1.10); GLUCOSE 99 MG/DL (70-104); MAGNESIUM 1.9 MG/DL (1.5-2.4); POTASSIUM 3.8 MMOL/L (3.5-5.1); SODIUM 134 MMOL/L (135-145); TOTAL CARBON DIOXIDE 29.1 MMOL/L (24-32); eGFR > 90 ML/MIN
[2020-07-05] MEDS: multivitamins, therapeutics tablet PO SCH (07:35)
[2020-07-05] MEDS: tamsulosin 0.4mg capsule PO SCH (07:35)
[2020-07-05] MEDS: ketorolac trometh. 30mg/ml inj. IV PRN (10:23)
[2020-07-05] MEDS: docusate sod 100mg capsule PO SCH (15:58)
--- NOTE | 2020-07-05 16:39 | NUR ---
Recieved report from IGNACIO Vazquez. Patient transferred from ICU via wheelchair accompanied by Carline. Patient placed onto telemetry monitoring, vital signs taken. Chest tube is placed onto water seal. 2 RN skin check completed. Addendum: 07/05/20 at 1711 by Nanci Hollingsworth RN After discussing with ICU nurse Taylor, patient's chest tube to be placed onto water seal per Dr. Purdy's note on 07/05/20.
--- NOTE | 2020-07-05 18:09 | NUR ---
Problems reprioritized. Patient report given, questions answered & plan of care reviewed with IGNACIO Stephens.
--- NOTE | 2020-07-05 18:28 | NUR ---
Patient in room MED 308. I have received report from Nanci PIERRE and had the opportunity to ask questions and assume patient care.
[2020-07-06] MEDS: HYDROcodone/acetaminophen 10/325mg tab PO PRN ×2 (01:20→06:00)
[2020-07-06 02:00] VITALS: BP 96/54
[2020-07-06] MEDS: ipratropium/albuterol 3ml nebule NEB SCH ×2 (02:44→08:34)
[2020-07-06 07:18] VITALS: BP 103/58
--- NOTE | 2020-07-06 07:23 | NUR ---
Patient in room MED 308. I have received report from [facility] and had the opportunity to ask questions and assume patient care.
[2020-07-06] MEDS ORDERED: docusate sod 100mg capsule PO SCH (08:00)
[2020-07-06] MEDS: tamsulosin 0.4mg capsule PO SCH (08:07)
[2020-07-06] MEDS: multivitamins, therapeutics tablet PO SCH (08:08)
[2020-07-06] MEDS: docusate sod 100mg capsule PO SCH (08:08)
--- NOTE | 2020-07-06 08:35 | NUR ---
0800 SVN REFUSED. NO RESP. DISTRESS OBSERVED
[2020-07-06] MEDS ORDERED: magnesium hydroxide 30ml (MOM) UD suspension PO ONE (10:25)
--- NOTE | 2020-07-06 10:44 | NUR ---
chest tubes removed by Dr Purdy no complications. will monitor
[2020-07-06] MEDS ORDERED: HYDR-3972 PO (10:45)
[2020-07-06 11:00] VITALS: BP 117/65
--- NOTE | 2020-07-06 12:12 | NUR ---
vital signs stable, no resp distress no c/o shortness of breath . pt ambulated twice around unit with and nurse no complications. pt to d/c home . pain pill prescription noted in chart by dr marrero . will [id number] discharge instructions with pt and d/c him home
--- NOTE | 2020-07-06 12:42 | NUR ---
pt being discharged to home, discharge instructions reviewed and pt voiced understanding. int removed x 2 . all valuables accounted for . dressing to previous chest tube site intact no drainage. pt finishing lunch will wheeled to lobby when ready
== END 2020-07-06 13:00 | disposition home or self-care (01) | DRG 166 ==
LOC: SUR 3N 11:14 → MED 3N 06-26 22:06 → ICU 2S 07-03 10:16 → MED 3N 07-05 16:20
PROVIDERS: ADMIT Surgery; ATTEND Surgery
PROC: 0W9B30Z Drainage of Left Pleural Cavity with Drainage Device, Percutaneous Approach (ICD-10-PCS; 2020-06-23)
PROC: BW241ZZ Computerized Tomography (CT Scan) of Chest and Abdomen using Low Osmolar Contrast (ICD-10-PCS; 2020-06-24)
PROC: 0W9940Z Drainage of Right Pleural Cavity with Drainage Device, Percutaneous Endoscopic Approach (ICD-10-PCS; 2020-07-03)
PROC: 0BBN4ZX Excision of Right Pleura, Percutaneous Endoscopic Approach, Diagnostic (ICD-10-PCS; 2020-07-03)
PROC: 3E0L4GC Introduction of Other Therapeutic Substance into Pleural Cavity, Percutaneous Endoscopic Approach (ICD-10-PCS; 2020-07-03)
PROC: 0W9940Z Drainage of Right Pleural Cavity with Drainage Device, Percutaneous Endoscopic Approach (ICD-10-PCS; 2020-07-03)
PROC: 0WP9X0Z Removal of Drainage Device from Right Pleural Cavity, External Approach (ICD-10-PCS; 2020-07-03)
PROC: 8E0W4CZ Robotic Assisted Procedure of Trunk Region, Percutaneous Endoscopic Approach (ICD-10-PCS; 2020-07-03)
PROC: 3E0L4GC Introduction of Other Therapeutic Substance into Pleural Cavity, Percutaneous Endoscopic Approach (ICD-10-PCS; principal; 2020-07-03 07:54)
DX: J90 Pleural effusion, not elsewhere classified (principal); J96.00 Acute respiratory failure, unspecified whether with hypoxia or hypercapnia; Z20.822 Contact with and (suspected) exposure to COVID-19; Z85.46 Personal history of malignant neoplasm of prostate; Z85.72 Personal history of non-Hodgkin lymphomas; Z88.8 Allergy status to other drugs, medicaments and biological substances
CPT/HCPCS: 32557; Z7506; Z7508; 36415; 36600; 71045; 71260; 74177; 80048; 80053; 82803; 82948; 83735; 84478; 85008; 85018; 85025; 85610; 85730; 86885; 86900; 86901; 87070; 87081; 87426; 92508; 92616; 93005; 94002; 94003; 94640; 94660; 94667; 94760; 94799; 97110; 97116; 97161; 97530; A4618; A6258; A6449; A7000; A7048; C1758; G0378; J0131; J0690; J1100; J1170; J1885; J2001; J2175; J2250; J2270; J2405; J2704; J3010; J3490; J7030; J7040; J7120; J7121; Q9963; Q9967